=== PATIENT | male | born 1965 | race Caucasian/White ===

== ENCOUNTER 2020-02-06 15:11 | Emergency (ER) | payer BC, SELFPAY ==
[2020-02-06] VITALS (8 sets, daily range): BP systolic 120–162; BP diastolic 75–89; PULSE 73–93; RESP 13–18; TEMP 36.4–36.7; O2SAT 97–98
--- NOTE | ~2020-02-06 | XR_ITS ---
EXAMINATION: XR chest 2V 02/06/2020 18:41 INDICATION: Nausea, vomiting and shortness of breath. PROCEDURE: 2 view chest COMPARISON: No prior studies for comparison. FINDINGS: The lungs are clear. The cardiomediastinal silhouette is within normal limits. There are no pleural effusions. There is no pneumothorax suspected. IMPRESSION: 1: NO ACUTE CARDIOPULMONARY DISEASE. Reviewed, dictated and finalized at location A.
--- NOTE | ~2020-02-06 | CT_ITS ---
EXAMINATION: CT BRAIN W/O DATE: 02/06/2020 21:20 INDICATION: Dizziness and vomiting TECHNIQUE: Computed tomography (CT) of the head was performed without intravenous contrast. The dose- length product was 681.00 mGy-cm. COMPARISON: No prior studies for comparison. FINDINGS: Normal brain parenchymal volume for age. Normal garcia-white differentiation. No acute intrac ranial hemorrhage, infarction, mass or mass effect. No ventriculomegaly or midline shift. Midline sagittal images demonstrate a normal corpus callosum, c raniovertebral junction and sella turcica. Basilar cisterns are patent. Paranasal sinuses and mastoids are pneumatized. No depressed skull fractures. IMPRESSION: 1. No acute intracranial abnormality. Reviewed, dictated and finalized at location A.
[2020-02-06 15:24] LABS: Basophils Absolute Auto 0.1 K/mm3 (0.0-0.1); Basophils Percent Auto 0.7 % (0.2-1.2); Eosinophils Absolute Auto 0.1 K/mm3 (0-0.3); Eosinophils Percent Auto 0.6 % (0-4.4); Hematocrit 47.6 % (42.0-52.0); Hemoglobin 16.2 g/dL (14.0-18.0); Immature Granulocyte Absolute 0.12 K/mm3 (0.00-0.031); Immature Granulocyte Percent A 0.8 % (0-0.5); Lymphocytes Absolute Auto 1.79 K/mm3 (0.9-3.2); Lymphocytes Percent Auto 11.6 % (18.3-44.2); Mean Corpuscular Hemoglobin 29.7 pg (26-34); Mean Corpuscular Volume 87.3 fl (80-100); Mean Platelet Volume 12.4 fl (7.4-10.4); Monocytes Absolute Auto 1.1 K/mm3 (0.1-0.6); Monocytes Percent Auto 6.9 % (2.6-8.5); Neutrophils Absolute Auto 12.3 K/mm3 (1.3-6.7); Neutrophils Percent Auto 79.4 % (45.5-73.1); Platelet Count Result 212 k/mm3 (150-375); Red Blood Count 5.45 M/mm3 (4.6-6.20); Red Cell Distribution Width 13.4 % (11.5-14.5); White Blood Count 15.5 K/mm3 (4.5-10.0)
[2020-02-06 15:37] LABS: Blood Urea Nitrogen 35 mg/dL (9-20); Calcium 9.9 mg/dL (8.4-10.2); Carbon Dioxide 24 mmol/L (22-30); Chloride 98 mmol/L (98-107); Estimated CRCL calculation 55 ml/min; Estimated Glomerular Filt Rate 45; Glucose 287 mg/dL (75-110); Potassium 4.3 mmol/L (3.4-5.0); Sodium 135 mmol/L (137-145)
--- NOTE | 2020-02-06 17:54 | PC.NURSE ---
Pt observed in waiting room eating snacks and drinking gatorade
--- NOTE | 2020-02-06 18:03 | ECG_ITS ---
Measurements Intervals [place] Rate: 82 P: 41 IN: 180 QRS: 28 QRSD: 89 T: 37 QT: 385 QTc: 450 Interpretive Statements SINUS RHYTHM POSSIBLE LEFT ATRIAL ENLARGEMENT POSSIBLE LEFT VENTRICULAR HYPERTROPHY BASELINE ARTIFACT- I, II BORDERLINE ECG Electronically Signed On 02-07-2020 7:21:28 CDT by Forrest Yepez D.O.
--- NOTE | 2020-02-06 18:04 | ED.GENADULT ---
HPI - General Adult General Chief complaint: Unspecified Stated complaint: dehydration Time Seen by Provider: 02/06/20 17:55 Source: patient Mode of arrival: ambulatory Limitations: no limitations History of Present Illness HPI narrative: This patient is a 55 year old male with history of DM, HTN who presents for evaluation of heat exhaustion . 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 Over the past week, he has intermittent episodes of dizziness, nausea when he is in the heat. He reports that when he is working outside he developed lightheadedness, nausea and sob. He denies sob with exertion or cough. Today he states he started having vomiting with his symptoms. He reports 4 episodes of emesis today. HE denies abdominal pain, fever, diarrhea, chest pain or sob. He denies sick contacts. He was able to drink 2 gatorades while waiting to be seen. He states he thinks he does not urinate some days. Onset (ago): week(s) Related Data Home Medications Medication Instructions Recorded Confirmed lisinopril 10 mg PO DAILY 02/06/20 tramadol mg 02/06/20 Allergies Allergy/AdvReac Type Severity Reaction Status Date / Time No Known Allergies Allergy Verified 02/06/20 18:17 Review of Systems Review of Systems: All systems reviewed & are unremarkable except as noted in HPI and below Constitutional: Constitutional: Denies chills, Denies fever(s) and Reports weakness ENT: Denies epistaxis, Denies nasal congestion and Denies sore throat Cardiovascular: Cardiovascular: Denies chest pain, Denies rapid heart rate and Denies radiating jaw, neck or arm pain Respiratory: Respiratory: Denies chest congestion, Denies cough, Reports dyspnea and Denies wheezing Gastrointestinal: Gastrointestinal: Denies abdominal pain, Denies constipation, Denies diarrhea, Reports nausea and Reports vomiting Genitourinary: Genitourinary: Reports oliguria Musculoskeletal: Musculoskeletal: Reports back pain (chronic) Neurologic: Denies vertigo, Denies syncope, Reports headache(s) and Denies focal weakness PMFSH Past Medical History Medical History (Updated 02/06/20 @ 21:39 by Gissel Hargrove MD) Diabetes mellitus Hypertension Surgical History Surgical History (Updated 02/06/20 @ 18:08 by Gissel Hargrove MD) No significant past surgical history Social History Social History (Updated 02/06/20 @ 18:08 by Gissel Hargrove MD) Smoking status: Never smoker Exam Narrative: Exam Narrative: GENERAL: Well-appearing, well-nourished, and in no acute distress. HEAD: Normocephalic, atraumatic EYES: PERRLA and EOMI, conjunctiva clear without discharge EARS: TM's clear bilaterally without erythema or dullness NOSE: Nares clear, no rhinorrhea or epistaxis THROAT:Mucous membranes moist, Oropharynx normal without erythema, exudate, peritonsillar swelling or fluctuance NECK: Supple, without lymphadenopathy or mass RESPIRATORY: No respiratory distress, Airway patent, Respirations non-labored, Clear to auscultation without rales, rhonchi or wheeze HEART: Regular rate and rhythm. No murmur heard. Normal peripheral pulses. ABDOMEN: Soft, nontender, nondistended, normal active bowel sounds. No masses. No rebound or guarding, No organomegaly. EXTREMITIES: No edema, normal strength with full range of motion. SKIN: Warm, dry, normal color without rash NEURO: Alert and oriented x3. CN 2-12 grossly intact. No focal deficits. PSYCH: Normal mood and affect. Course Reevaluation(s) Reevaluation #1: I have discussed with patient that he has kidney disease that may be due to his uncontrolled diabetes. I discussed he needs to follow up with PCP regarding diabetes and symptoms. He has not chest pain to such SD. His symptoms are not exertional. This is unlikely PE or respiratory. Date: 02/06/20 Time: 21:34 Vital Signs Vital signs: Vital Signs Temperature 98.0 F 02/06/20 15:13 Pulse Rate 93 02/06/20 15:13 Respiratory
[2020-02-06 18:39] LABS: Alanine Aminotransferase 119 U/L (4-50); Albumin Level 4.8 g/dL (3.5-5.1); Alkaline Phosphatase 116 U/L (38-126); Aspartate Amino Transferase 65 U/L (17-59); Bilirubin,Total 0.5 mg/dL (0.2-1.3); Lipase 93 U/L (23-300)
[2020-02-06] MEDS: LACTATED RINGERS 1,000 ML 999 ML IV CONT (18:46)
[2020-02-06] MEDS: SODIUM CHLORIDE 0.9% IV 1,000 ML 999 ML IV CONT (18:46)
[2020-02-06 18:48] LABS: Add Urine Microscopic? YES; Appearance Urine Clear (Clear); Bilirubin Urine Negative (Negative); Blood Urine Negative (Negative); Color Urine Yellow (Yellow); Glucose Urine UA 3+ mg/dL (Negative); Hyaline Casts Urine 50+ /lpf; Ketones Urine Negative (Negative); Leukocyte Esterase Ur Negative LEU/UL (Negative); Mucus Urine Rare /lpf; Nitrate Urine Negative (Negative); Protein Urine 1+ mg/dL (Negative); RBC Urine 0-2 /hpf (0-2); Specific Grav Ur 1.018 (1.001-1.035); Squamous Epithelial Cell Urine Occasional /hpf (Few); Urobilinogen Urine Negative mg/dL (<2.0)
[2020-02-06] MEDS: ONDANSETRON INJ 4 MG/2 ML VIAL IV PUSH (19:56)
[2020-02-06] MEDS: MECLIZINE HCL 25 MG TABLET PO (19:58)
--- NOTE | 2020-02-06 21:10 | PC.NURSE ---
Pt and family requesting updates onplan of care. EDP made aware and to bedside to discuss
== END 2020-02-06 22:05 | disposition home or self-care (01) ==
PROVIDERS: Family Medicine; Emergency Provider General Practice; PCP Physician Assistant
DX: E11.65 Type 2 diabetes mellitus with hyperglycemia (principal); N28.9 Disorder of kidney and ureter, unspecified; E86.0 Dehydration; I10 Essential (primary) hypertension; R94.31 Abnormal electrocardiogram [ECG] [EKG]
CPT/HCPCS: 36415; 70450; 71046; 80048; 80076; 81001; 83690; 83735; 85025; 93005; 96361; 96374; 99284; A9270; J2405; J7030; J7120

== ENCOUNTER 2023-05-26 12:14 | Outpatient (CLI) | payer BC, SELFPAY ==
--- NOTE | ~2023-05-26 | XR_ITS ---
EXAMINATION:XR cervical spine 4-5V DATE: 05/26/2023 12:35 INDICATION: Neck pain TECHNIQUE: AP, lateral, lateral swimmers and odontoid views of the cervical spine are provided. COMPARISON: None FINDINGS: There are 2 mm of retrolisthesis of C3 on C4. The odontoid process is intact. No fracture i s identified. The vertebral body heights are normal. There is mild loss of intervertebral disc space height throughout the cervical spine. Small degenerative osteophytes project from the anterior endpla kimber of multiple vertebral bodies. There is multilevel moderate facet and uncovertebral joint osteoart hritis. Prevertebral soft tissues are normal. IMPRESSION: 1. Mild cervical spondylosis without acute findings. Reviewed, dictated and finalized at location F.
== END 2023-05-26 12:15 | disposition home or self-care (01) ==
PROVIDERS: PCP Physician Assistant; Visit Provider Physician Assistant
DX: M47.892 Other spondylosis, cervical region (principal)
CPT/HCPCS: 72050

== ENCOUNTER 2023-08-11 06:40 | Outpatient (CLI) | payer BC, SELFPAY ==
--- NOTE | ~2023-08-11 | MR_ITS ---
MRI of the cervical spine Clinical History: Cervical spondylosis Technique: Axial T2-weighted and gradient images, and sagittal T1-weighted, T2-weighted, and STIR pancho ges were acquired. Findings: There is no fracture or sublocation of the cervical spine. Vertebral bodies maintain normal alignment. No bone marrow signal abnormality seen. At C2-C3, there is no disc bulge or herniation. No spinal canal stenosis, cord compression, or neural foraminal narrowing. At C3-C4, there is minimal disc osteophyte complex. No spinal canal stenosis, cord compression, or de finite neural foraminal narrowing. There is mild facet arthropathy. At C4-C5, there is minimal disc osteophyte complex. There is mild facet arthropathy. There is probabl e mild right neural foraminal narrowing. Left neural foramen preserved. No central canal stenosis or cord compression. At C5-C6, there is minimal disc osteophyte convex. There is probable mild bilateral neural foraminal narrowing. Bilateral facet arthropathy. No central canal stenosis or cord compression. At C6-C7, there is minimal disc osteophyte complex. Probable minimal bilateral neural foraminal narro wing with minimal facet arthropathy. No central canal stenosis or cord compression. No abnormal signal seen in the spinal cord. Paravertebral soft tissues are unremarkable. Impression: Mild degenerative spondylosis, as above. Reviewed, dictated and finalized at [facility]. 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
== END 2023-08-11 06:41 | disposition home or self-care (01) ==
PROVIDERS: PCP Physician Assistant; Visit Provider Physician Assistant
DX: M47.812 Spondylosis without myelopathy or radiculopathy, cervical region (principal)
CPT/HCPCS: 72141

== ENCOUNTER 2025-04-07 10:38 | Emergency (ER) | payer BC, SELFPAY ==
--- NOTE | ~2025-04-07 | XR_ITS ---
EXAMINATION: XR chest 2V, 04/07/2025 11:55 CDT HISTORY: L rib pain, trauma, FALL ON 04/03/25 COMPARISON: No comparisons available. Technique: 2 views obtained. Findings: The lungs are clear, no effusion. No pneumothorax. Heart is normal size. Mediastinal and hilar contours are within normal limits. Bony thorax no acute abnormality. Impression: No acute cardiopulmonary abnormality. Reviewed, dictated and finalized at location A. Impression: No acute cardiopulmonary abnormality.
[2025-04-07 11:03] VITALS: BP 163/97; PULSE 108; RESP 18; TEMP 37.1; O2SAT 99
--- OUTSIDE RECORDS SUMMARY | 2025-04-07 11:43 | XMS_ITS | Clinical Summary ---
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
--- OUTSIDE RECORDS SUMMARY | 2025-04-07 11:43 | XMS_ITS | Clinical Summary ---
Author Organization [facility] Address [address] [place] [id number] Care Team Providers Care Guide Excursion Name Role Phone Ramandeep Ruffin MD Primary Care Provider [phone] Social History Tobacco Use Types Packs/Day Years Used Date Smoking Tobacco: Never Assessed Sex and Gender Information Value Date Recorded Sex Assigned at Not on file Legal Sex Male 8:16 PM CDT Gender Identity Not on file Sexual Orientation Not on file Last Filed Vital Signs Vital Sign Reading Time Taken Comments Blood Pressure 180/90 05/06/2015 1:41 PM CDT Pulse 109 05/06/2015 1:41 PM CDT Temperature - - Respiratory Rate - - Oxygen Saturation - - Inhaled Oxygen Concentration - - Weight 105.2 kg (232 lb) 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 Height 175.3 cm (5' 9) 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 Body Mass Index 34.26 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 Plan of Treatment Health Maintenance Due Date Last Done Comments Colorectal Cancer Screening Colonoscopy (10 Years) 1965 Annual Physical 01/31/1967 Hepatitis C 01/31/1982 DTaP, Tdap and Td Vaccines ( 1 - Tdap) 01/31/1983 Pneumococcal Vaccine: 50+ Ye ars (1 of 1 - PCV) 01/31/2014 Zoster Vaccines (1 of 2) 01/31/2014 COVID-19 Vaccine ( - 2023-2 5 season) 2025 RSV Immunization or 60+ Years (1 - 1-dose 75+ series) 01/31/2039 Meningococcal B Vaccine Aged Out No l onger eligible based on patient's age to complete this topic Meningococcal Vaccine Aged Out No debi cheryl eligible based on patient's age to complete this topic RSV Immunizations Under 20 Months Aged Out No longer eligible based on patient's age to complete this topic Care Teams Guide Excursion Relationship Specialty Start Date End Date Ramandeep Ruffin MD [address] [address] PCP - General 04/29/15
--- NOTE | 2025-04-07 11:48 | ED_ITS ---
HPI - General Adult General Chief complaint: Fall Stated complaint: fall 04/03, think cracked rib Time Seen by Provider: 04/07/25 11:26 History of Present Illness HPI narrative: 60-year-old male presents to the emergency department for evaluation for left- sided rib pain. Patient reports he had a mechanical fall landed on a traffic cone on Tuesday and injured his left side. Patient has been going to work but states he still having worsening pain at the left chest. Patient denies any ear pain or injury. Patient denies any significant past medical history. Related Data Home Medications ?Medication ?Instructions ?Recorded ?Confirmed ?Last Taken ?Type lisinopril 10 mg tablet 10 mg PO DAILY 02/06/2010/23 Unknown History cyclobenzaprine 10 mg tablet 10 mg PO DAILY 04/03/25 0 04/03/25 Unknown History ibuprofen 200 mg tablet (Advil) 200 mg PO DAILY 04/03/25 Unknown History metformin 500 mg tablet 500 mg PO BID 04/03/2504/03 Unknown History Allergies Allergy/AdvReac Type Severity Reaction Status Date / Time No Known Allergies Allergy Verified 04/07/25 10:40 Review of Systems Review of Systems: All systems reviewed & are unremarkable except as noted in HPI and below PMFSH Past Medical History Medical History (Updated 04/07/25 @ 13:06 by Joey Montana MD) Diabetes mellitus Hypertension Surgical History Surgical History (Updated 02/06/20 @ 18:08 by Gissel Hargrove MD) No significant past surgical history Social History Social History (Updated 02/06/20 @ 18:08 by Gissel Hargrove MD) Years smoked: 10 Smoking status: Former smoker Tobacco type: cigarettes Alcohol intake: never Substance use: never Substance use type: does not use Living arrangements: with family Spiritual care concerns: No Exam Narrative: APPEARANCE: Well appearing, no pain, no distress, well-nourished. HEAD: normocephalic, atraumatic. EYES: PERRLA/EOMI, conjunctivae clear. NOSE: Normal no drainage EARS:TMS clear with good light reflex. THROAT: Pharynx clear, no exudate. NECK: Supple. No adenopathy, no masses. RESPIRATORY: Airway patent, respirations nonlabored. Clear to auscultation bilaterally, no rales, rhonchi, wheezing. CARDIOVASCULAR: Regular rate and rhythm without murmurs rubs or gallops. ABDOMINAL: Soft, nontender, nondistended, normal bowel sounds MUSCULOSKELETAL: Left-sided chest wall tenderness to palpation with no crepitus or deformity NEURO: Alert. Cranial nerves II through XII intact. Good gait. Good coordination SKIN: Left chest erythema secondary to heating pad Course Vital Signs Vital signs: Vital Signs Temperature 98.8 F 04/07/25 11:03 Pulse Rate 108 H 04/07/25 11:03 Respiratory Rate 18 04/07/25 11:03 Blood Pressure 163/97 H 04/07/25 11:03 Pulse Oximetry 99 04/07/25 11:03 Oxygen Delivery Room Air 04/07/25 11:03 Temperature 98.8 F 04/07/25 11:03 Pulse Rate 108 H 04/07/25 11:03 Respiratory Rate 18 04/07/25 11:03 Blood Pressure 163/97 H 04/07/25 11:03 Pulse Oximetry 99 04/07/25 11:03 Oxygen Delivery Room Air 04/07/25 11:03 Medical Decision Making MDM Narrative Medical decision making narrative: 60-year-old male presents to the emergency department for evaluation for left- sided chest pain after having a ground level fall. Patient was concern for rib fracture. Patient's lungs are clear, patient does have tenderness to left lower ribs to palpation with no crepitus. Patient does have what appears to be erythema secondary to the heating pad he was using the area. Chest x-ray was negative for significant fracture but is also negative for pneumothorax or pneumonia. Patient will be advised to take ibuprofen for pain control, Nathalie as needed for additional pain control and Flexeril for muscle spasm. Patient was provided incentive spirometer. Patient was educated on reasons to return to the emergency department. Differential Diagnosis Differential Diagnosis: Rib fracture, rib contusion, pneumonia, pneumothorax Vital Signs Vital Signs: Vital Signs Temperature 98.8 F 04/07/25 11:03 Pulse Rate 108 H 04/07/25 11:03 Respiratory Rate 18 04/07/25 11:03 Blood Pressure 163/97 H 04/07/25 11:03 Pulse Oximetry 99 04/07/25 11:03 Oxygen Delivery Room Air 04/07/25 11:03 Temperature 98.8 F 04/07/25 11:03 Pulse Rate 108 H 04/07/25 11:03 Respiratory Rate 18 04/07/25 11:03 Blood Pressure 163/97 H 04/07/25 11:03 Pulse Oximetry 99 04/07/25 11:03 Oxygen Delivery Room Air 04/07/25 11:03 Imaging Data Radiologist's impression: Impressions Chest X-Ray 04/07/25 12:27 Impression: No acute cardiopulmonary abnormality. Discharge Plan Discharge Clinical Impression: Contusion of rib Patient Disposition: Home Condition: Stable Instructions: Antibiotic Form, How to Use an Incentive Spirometer (ED), Rib Contusion (ED) Additional Instructions: Ibuprofen for pain control, Flexeril for muscle spasm and Nathalie as needed for additional pain control. Incentive spirometer as directed. If you have any worsening symptoms then please call or return to the emergency department. Patient Language: Citizen Of [place] Prescriptions: New cyclobenzaprine 10 mg tablet 10 mg PO BID PRN (Reason: muscle spasm) Qty: 14 0RF hydrocodone-acetaminophen 5-325 mg tablet 1 tablet PO Q12H PRN (Reason: pain) Qty: 14 0RF No Action metformin 500 mg tablet 500 mg PO BID ibuprofen [Advil] 200 mg tablet 200 mg PO DAILY cyclobenzaprine 10 mg tablet 10 mg PO DAILY lisinopril 10 mg Tablet 10 mg PO DAILY Follow-up/Referrals: Dylan,TOM Muro [Primary Care Provider, Unknown]
[2025-04-07] MEDS: CYCLOBENZAPRINE HCL 10 MG TABLET PO (12:07)
[2025-04-07] MEDS: KETOROLAC 30 MG/ML VIAL (*BKC) IM (12:07)
== END 2025-04-07 13:13 | disposition home or self-care (01) ==
PROVIDERS: Emergency Provider Emergency Medicine; PCP Physician Assistant
DX: S20.212A Contusion of left front wall of thorax, initial encounter (principal); E11.9 Type 2 diabetes mellitus without complications; I10 Essential (primary) hypertension; W19.XXXA Unspecified fall, initial encounter; Z79.84 Long term (current) use of oral hypoglycemic drugs
CPT/HCPCS: 71046; 96372; 99283; A9270; J1885

== ENCOUNTER 2025-04-12 01:52 | Day surgery (SDC) | payer BC, SELFPAY ==
[2025-04-03 15:07] VITALS: BMI 34.0
[2025-04-12 09:30] VITALS: BP 138/88; PULSE 92; RESP 16; TEMP 36.9; O2SAT 98
[2025-04-12] MEDS: LACTATED RINGERS 1,000 ML 150 ML IV CONT (09:43)
--- NOTE | 2025-04-12 09:49 | WPDANESEPPF ---
Anes - Initial Pre Proc Eval Procedure: Operation Date: 04/12/25 10:30 Proposed Procedures p Diagnostic Colonoscopy - Amauri Torres MD Date/Time: 04/12/25 09:49 Surgeon: Amauri Torres MD Pre Op Diagnosis: Other fecal abnormalities Patient Data Age: 60 Gender: M Height: 1.75 m Weight: 99.9 kg Last Vital Signs Temp 36.9 C 04/12/25 09:30 Pulse 92 04/12/25 09:30 Resp 16 04/12/25 09:30 BP 138/88 04/12/25 09:30 Pulse Ox 98 04/12/25 09:30 O2 Del Method Room Air 04/12/25 09:30 Allergies Allergy/AdvReac Type Severity Reaction Status Date / Time No Known Allergies Allergy Verified 04/12/25 09:27 Home Medications ?Medication ?Instructions ?Recorded ?Confirmed ?Type lisinopril 10 mg tablet 10 mg PO DAILY 02/06/20 04/12/25 History cyclobenzaprine 10 mg tablet 10 mg PO DAILY 04/03/25 04/12/25 History ibuprofen 200 mg tablet (Advil) 200 mg PO DAILY 04/03/25 04/12/25 History metformin 500 mg tablet 500 mg PO BID 04/03/25 04/12/25 History cyclobenzaprine 10 mg tablet 10 mg PO BID PRN muscle spasm #14 04/07/25 04/12/25 Rx tabs hydrocodone 5 mg-acetaminophen 325 1 tablet PO Q12H PRN pain #14 tabs 04/07/25 04/12/25 Rx mg tablet Laboratory Tests 04/12/25 09:41 POC Capillary Glucose 178 H mg/dl (65-105) Patient hx anesthesia problems: none Family hx anesthesia problems: none Results Review: All pre-operative results and documents have been reviewed as part of the pre-operative evaluation. [facility] Past Medical History Medical History (Updated 04/08/25 @ 00:00 by Vanesa Mahmood) Diabetes mellitus Hypertension Surgical History Surgical History (Updated 02/06/20 @ 18:08 by Gissel Hargrove MD) No significant past surgical history Social History Social History (Updated 02/06/20 @ 18:08 by Gissel Hargrove MD) Years smoked: 10 Smoking status: Former smoker Tobacco type: cigarettes Alcohol intake: never Substance use: never Substance use type: does not use Living arrangements: with family Spiritual care concerns: No Anes - Eval Final PreProcedure Day of Procedure 04/12/25 09:49 Patient weight: obese Heart: regular rate and rhythm Lungs: clear to auscultation Airway: Mallampati scale class II Neurological: alert and oriented Last oral intake: >/= 8 hours ASA classification: III Emergent: no Anesthetic plan: proceed Anesthesia type and monitoring: general GIVS and standard monitoring Results Review: All pre-operative results and documents have been reviewed as part of the pre-operative evaluation. Informed Consent: The patient's anesthetic plan and its attendant risks and benefits were discussed with the patient/family/POA. Questions were solicited and answers provided to the satisfaction of the patient/family/POA.
--- NOTE | 2025-04-12 10:13 | PM.IMHP ---
H&P: HPI History of Present Illness Date/Time: 04/12/25 10:13 Chief Complaint: Screening colonoscopy Narrative: This is the patient's first colonoscopy. There are no GI symptoms and there is no family history of colorectal cancer. Review of Systems Review of Systems: All systems reviewed & are unremarkable except as noted in HPI and below PMFSH Past Medical History Medical History (Updated 04/12/25 @ 10:14 by Amauri Torres MD) Diabetes mellitus Hypertension Surgical History Surgical History (Updated 02/06/20 @ 18:08 by Gissel Hargrove MD) No significant past surgical history Social History Social History (Updated 02/06/20 @ 18:08 by Gissel Hargrove MD) Years smoked: 10 Smoking status: Former smoker Tobacco type: cigarettes Alcohol intake: never Substance use: never Substance use type: does not use Living arrangements: with family Spiritual care concerns: No Meds Home Medications and Allergies Home Medications ?Medication ?Instructions ?Recorded ?Confirmed ?Type lisinopril 10 mg tablet 10 mg PO DAILY 02/06/20 04/12/25 History cyclobenzaprine 10 mg tablet 10 mg PO DAILY 04/03/25 04/12/25 History ibuprofen 200 mg tablet (Advil) 200 mg PO DAILY 04/03/25 04/12/25 History metformin 500 mg tablet 500 mg PO BID 04/03/25 04/12/25 History cyclobenzaprine 10 mg tablet 10 mg PO BID PRN muscle spasm #14 04/07/25 04/12/25 Rx tabs hydrocodone 5 mg-acetaminophen 325 1 tablet PO Q12H PRN pain #14 tabs 04/07/25 04/12/25 Rx mg tablet Allergies Allergy/AdvReac Type Severity Reaction Status Date / Time No Known Allergies Allergy Verified 04/12/25 09:27 Vital Signs Vital Signs - 24 hr 04/12/25 09:30 Temperature 98.4 F Pulse Rate 92 Respiratory Rate 16 Blood Pressure 138/88 Pulse Oximetry 98 Oxygen Delivery Room Air Exam Const: General: cooperative and healthy appearing Resp: Effort & Inspection: normal respiratory effort and able to speak in complete sentences Auscultation: clear to auscultation bilaterally Cardio: Rate: regular rate Rhythm: regular rhythm GI: Inspection: normal to inspection GI Palp: No No hepatosplenomegaly present Auscultation: normal bowel sounds Rectal Exam: deferred Skin: General skin exam: normal color Psych: Appearance: grossly normal Mental Status: mental status grossly normal Assessment and Plan Assessment and plan (1) Encounter for screening colonoscopy: Code(s): Z12.11 - Encounter for screening for malignant neoplasm of colon Status: Acute Assessment and Plan: The patient is deemed a good candidate for the procedure. Consent signed. Will proceed.
[2025-04-12] MEDS: SIMETHICONE ORAL SUSPENSION 20 MG/0.3 ML 30 ML BOTTLE 0.6 ML IRRIGATION (10:36)
--- NOTE | 2025-04-12 10:46 | S_PTH ---
PATIENT: Tanvir Cook LOC: [facility] U#:[id number] AGE/SX: 60/M ROOM: RE04/12/[address]: Amauri Torres MD : 1965 BED: DIS: 04/12/2025 SPEC #: [id number] RECD: 04/12/25 13:24 STATUS: SANTI RERocio #: [id number] ANGELLA: 04/12/25 10:[address]: Amauri Torres DEPT: [facility] Surgical RECD BY: Estela Hernández ENTERED: 04/12/25 13:25 SP TYPE: Surgical OTHR DR: Jina Richardson, PA-C Tissues: A - Colon Polypectomy Procedures: Hematoxylin and Eosin Stain Gross and Microscopic Level 4
[2025-04-12 10:47] VITALS: BP 166/99; PULSE 99; RESP 16; O2SAT 100
[2025-04-12 10:57] VITALS: BP 149/100; PULSE 102; RESP 15; O2SAT 100
[2025-04-12 11:07] VITALS: BP 142/97; PULSE 88; RESP 16; O2SAT 97
== END 2025-04-12 11:20 | disposition home or self-care (01) ==
PROVIDERS: PCP Physician Assistant; Referring Provider Physician Assistant; Visit Provider Internal Medicine Gastroenterology
PROC: 0DJD8ZZ Inspection of Lower Intestinal Tract, Via Natural or Artificial Opening Endoscopic (ICD-10-PCS; CPT 45378; principal; 2025-04-12 10:30)
DX: Z12.11 Encounter for screening for malignant neoplasm of colon (principal); D12.2 Benign neoplasm of ascending colon; I10 Essential (primary) hypertension; E11.9 Type 2 diabetes mellitus without complications; E66.9 Obesity, unspecified; Z68.32 Body mass index [BMI] 32.0-32.9, adult; Z79.1 Long term (current) use of non-steroidal anti-inflammatories (NSAID); Z79.84 Long term (current) use of oral hypoglycemic drugs; Z79.891 Long term (current) use of opiate analgesic; Z87.891 Personal history of nicotine dependence
CPT/HCPCS: 45390; 82948; 88305; J2003; J2704; J7120